=== PATIENT | male | born 1955 | race Caucasian/White ===

== ENCOUNTER 2018-05-10 18:26 | Inpatient (IN) | payer BC ==
[~2018-05-10] VITALS: Ht 152.4 cm; Wt 83.1 kg
[2018-05-10] MEDS ORDERED: LACTULOSE 20Gm/30ML SOLN PO ONE (20:30)
[2018-05-10 21:20] LABS: Basophils # (auto) 0 uL; Basophils % (auto) 0.3 % (0.0-2.0); Eosinophils # (auto) 0 uL; Eosinophils % (auto) 0.6 % (0.0-7.0); Hematocrit 32.4 % (41.0-53.0); Hemoglobin 10.8 g/dL (13.5-17.5); Lymphocytes # (auto) 0.8 uL; Lymphocytes % (auto) 11.5 % (10.0-50.0); Mean Corpuscular Hemoglobin 35.1 pg (28.0-32.0); Mean Corpuscular Hgb Conc. 33.4 g/dL (32.0-36.0); Mean Corpuscular Volume 105.3 fL (80.0-100.0); Monocytes # (auto) 0.7 uL; Monocytes % (auto) 8.9 % (0.0-12.0); Neutrophils # (auto) 5.7 uL; Neutrophils % (auto) 78.7 % (37.0-80.0); Platelet Count (auto) 173 10^3/uL (140-450); Red Blood Cells 3.08 10^6/uL (4.5-5.90); Red Cell Distribution Width 18.9 % (11.8-14.3); White Blood Cell 7.3 10^3/uL (4.4-10.8)
[2018-05-10 21:36] LABS: INR 1.77 (0.9-1.15); Partial Thromboplastin Time 29.3 sec (23.78-33.04); Prothrombin Time 18.3 sec (9.27-12.13)
[2018-05-10 21:43] LABS: Alanine Aminotransferase 55 U/L (16-61); Albumin 2.1 g/dL (3.4-5.0); Anion Gap 10 (5-15); Aspartate Aminotransferase 272 U/L (15-37); BUN/Creatinine Ratio 22.8; Blood Alcohol < 3.0 mg/dL (0-5); Blood Urea Nitrogen 28 mg/dL (7-18); Calcium 7.6 mg/dL (8.5-10.1); Carbon Dioxide 25 mmol/L (21-32); Chloride 105 mmol/L (98-107); GFR African American 76 mL/min; GFR Non-African American 63 mL/min; Glucose 158 mg/dL (74-106); Magnesium 1.8 mg/dL (1.6-2.6); Potassium 4.5 mmol/L (3.5-5.1); Sodium 140 mmol/L (136-145)
[2018-05-10 21:45] LABS: Amylase 22 U/L (25-115); Lipase 37 U/L (73-393)
[2018-05-10 21:49] LABS: Alkaline Phosphatase 223 U/L (45-117); Bilirubin, Total 8.5 mg/dL (0.2-1.0); Total Protein 6.2 g/dL (6.4-8.2)
[2018-05-10 21:52] LABS: Lactic Acid w/Reflex 2.4 mmol/L (0.4-2.0)
[2018-05-10 22:54] LABS: Urine Bacteria NONE SEEN /hpf (None Seen); Urine Blood Negative /uL (Negative); Urine Mucus FEW (None Seen); Urine Specific Gravity 1.011 (1.001-1.035); Urine WBC 4 /hpf (0 - 3)
[2018-05-10 23:06] LABS: Alcohol, Urine < 3.0 mg/dL (0-5); Amphetamine Screen, Urine NEGATIVE (NEGATIVE); Barbiturate Scree,Urine NEGATIVE (NEGATIVE); Benzodiazephine Screen, Urine NEGATIVE (NEGATIVE); Cannabinoid Screen, Urine NEGATIVE (NEGATIVE); Cocaine Screen, Urine NEGATIVE (NEGATIVE); Opiate Scree,Urine NEGATIVE (NEGATIVE); Phencyclidine Screen, Urine NEGATIVE (NEGATIVE)
[2018-05-10] MEDS: ACCU-CHEK COMFORT CURVE STRIP VI SCH (23:30)
[2018-05-10] MEDS ORDERED: OCTREOTIDE ACETATE 100 MCG in SODIUM CHL 0.9% 50 ML IV ONE (23:30)
[2018-05-10] MEDS ORDERED: DEXTROSE (50%) 50ML SYRG IV PRN (23:45)
[2018-05-10] MEDS ORDERED: LORazepam 2MG/ML-1ML VIAL IV PRN (23:45)
[2018-05-11] VITALS (23 sets, daily range): BP systolic 80–107; BP diastolic 42–63
[2018-05-11] MEDS ORDERED: FUROSEMIDE 40 MG/4 ML VIAL IV ONE
[2018-05-11] MEDS ORDERED: PANTOPRAZOLE 40 MG/10 ML VIAL IV ONE
[2018-05-11] MEDS: OCTREOTIDE ACETATE 500 MCG in SODIUM CHL 0.9% 99 ML IV SCH ×3 (02:38→18:01)
[2018-05-11] MEDS ORDERED: OCTREOTIDE ACETATE 100 MCG/ML VL ONE (02:45)
[2018-05-11] MEDS ORDERED: OCTREOTIDE ACETATE 500 MCG/ML VL ONE (02:45)
[2018-05-11] MEDS ORDERED: OMEP20TA PO (04:19)
[2018-05-11] MEDS ORDERED: PROP60CA34 PO (04:19)
[2018-05-11] MEDS ORDERED: POTA10TA79 PO (04:19)
[2018-05-11] MEDS ORDERED: GLIP-115 PO (04:19)
[2018-05-11 05:24] LABS: Eosinophils # (auto) 0 uL; Eosinophils % (auto) 0.2 % (0.0-7.0); Monocytes # (auto) 0.8 uL; Monocytes % (auto) 7.9 % (0.0-12.0); Neutrophils # (auto) 8.1 uL
[2018-05-11 05:28] LABS: Basophils # (auto) 0 uL; Basophils % (auto) 0.2 % (0.0-2.0); Hematocrit 27.9 % (41.0-53.0); Hemoglobin 9.9 g/dL (13.5-17.5); Mean Corpuscular Hemoglobin 36.4 pg (28.0-32.0); Mean Corpuscular Hgb Conc. 35.4 g/dL (32.0-36.0); Mean Corpuscular Volume 102.7 fL (80.0-100.0); Neutrophils % (auto) 81.7 % (37.0-80.0); Platelet Count (auto) 166 10^3/uL (140-450); Red Blood Cells 2.72 10^6/uL (4.5-5.90); Red Cell Distribution Width 17.9 % (11.8-14.3); White Blood Cell 9.9 10^3/uL (4.4-10.8)
[2018-05-11 05:44] LABS: Potassium 4.2 mmol/L (3.5-5.1)
[2018-05-11 05:53] LABS: Albumin 2.1 g/dL (3.4-5.0); BUN/Creatinine Ratio 25.9; Bilirubin, Total 8.5 mg/dL (0.2-1.0); Calcium 7.9 mg/dL (8.5-10.1); Total Protein 5.8 g/dL (6.4-8.2)
[2018-05-11] MEDS: InsuLIN REG 1unit/0.01ml Soln (100units/ml) SC SCH ×4 (05:59→17:52)
[2018-05-11] MEDS: ACCU-CHEK COMFORT CURVE STRIP VI SCH ×3 (05:59→17:52)
[2018-05-11] MEDS ORDERED: SODIUM CHLORIDE 0.9% 1,000 ML IV SCH (13:00)
[2018-05-11] MEDS ORDERED: PANTOPRAZOLE 80 MG in SODIUM CHL 0.9% 60 ML IV SCH (13:00)
[2018-05-11] MEDS ORDERED: SODIUM CHLORIDE 0.9% 500 ML IV ONE (13:00)
[2018-05-11] MEDS: ALBUMIN 25% 50 ML IV SCH ×2 (13:19→22:58)
[2018-05-11 13:26] LABS: Hematocrit 27.4 % (41.0-53.0)
[2018-05-11 13:28] LABS: Hemoglobin 9.2 g/dL (13.5-17.5)
[2018-05-11] MEDS: D5W/SOD CHLO 0.9% 1,000 ML IV SCH (16:00)
[2018-05-11] MEDS: LACTULOSE 20Gm/30ML SOLN NG SCH (18:01)
[2018-05-11] MEDS: PANTOPRAZOLE 40 MG/10 ML VIAL IV SCH (22:00)
[2018-05-11] MEDS ORDERED: FUROSEMIDE 20 MG/2 ML VIAL IV ONE (22:45)
[2018-05-12] VITALS (12 sets, daily range): BP systolic 93–113; BP diastolic 50–67
[2018-05-12] MEDS: LACTULOSE 20Gm/30ML SOLN NG SCH ×5 (00:34→23:32)
[2018-05-12] MEDS: InsuLIN REG 1unit/0.01ml Soln (100units/ml) SC SCH ×5 (00:38→23:31)
[2018-05-12] MEDS: OCTREOTIDE ACETATE 500 MCG in SODIUM CHL 0.9% 99 ML IV SCH ×4 (05:00→20:22)
[2018-05-12 05:13] LABS: Basophils # (auto) 0 uL; Eosinophils # (auto) 0 uL; Lymphocytes # (auto) 1.1 uL; Mean Corpuscular Volume 107.5 fL (80.0-100.0); Monocytes # (auto) 0.6 uL
[2018-05-12 05:17] LABS: Basophils % (auto) 0.2 % (0.0-2.0); Hemoglobin 7.7 g/dL (13.5-17.5); Lymphocytes % (auto) 9.4 % (10.0-50.0); Mean Corpuscular Hemoglobin 35.8 pg (28.0-32.0); Mean Corpuscular Hgb Conc. 33.3 g/dL (32.0-36.0); Monocytes % (auto) 5.4 % (0.0-12.0); Neutrophils # (auto) 9.6 uL; Nucleated Red Blood Cells % 0.1 %; Platelet Count (auto) 141 10^3/uL (140-450); Red Blood Cells 2.14 10^6/uL (4.5-5.90); White Blood Cell 11.3 10^3/uL (4.4-10.8)
[2018-05-12 05:25] LABS: INR 2.59 (0.9-1.15); Partial Thromboplastin Time 31.4 sec (23.78-33.04); Prothrombin Time 26.3 sec (9.27-12.13)
[2018-05-12] MEDS: ALBUMIN 25% 50 ML IV SCH (05:28)
[2018-05-12 05:29] LABS: Red Cell Distribution Width 20.2 % (11.8-14.3)
[2018-05-12 05:34] LABS: Potassium 4.6 mmol/L (3.5-5.1)
[2018-05-12 05:39] LABS: BUN/Creatinine Ratio 19.3; Calcium 7.9 mg/dL (8.5-10.1)
[2018-05-12] MEDS: ACCU-CHEK COMFORT CURVE STRIP VI SCH ×5 (06:23→23:30)
[2018-05-12] MEDS ORDERED: SODIUM CHLORIDE 0.9% 1,000 ML IV ONE (06:30)
[2018-05-12] MEDS: PANTOPRAZOLE 40 MG/10 ML VIAL IV SCH ×2 (09:37→21:58)
[2018-05-12] MEDS: D5W/SOD CHLO 0.9% 1,000 ML IV SCH ×2 (15:00)
[2018-05-12] MEDS ORDERED: PHYTONADIONE (VIT K)10 MG/ML 1ML VIAL SUBCUT ONE (15:15)
[2018-05-13 00:38] VITALS: BP 102/59
[2018-05-13] MEDS: D5W/SOD CHLO 0.9% 1,000 ML IV SCH ×3 (02:15→21:50)
[2018-05-13 04:11] VITALS: BP 110/56
[2018-05-13] MEDS: LACTULOSE 20Gm/30ML SOLN NG SCH ×3 (05:35→21:38)
[2018-05-13] MEDS: OCTREOTIDE ACETATE 500 MCG in SODIUM CHL 0.9% 99 ML IV SCH (05:36)
[2018-05-13] MEDS: ACCU-CHEK COMFORT CURVE STRIP VI SCH ×3 (05:36→18:09)
[2018-05-13] MEDS: InsuLIN REG 1unit/0.01ml Soln (100units/ml) SC SCH ×3 (06:24→18:10)
[2018-05-13 06:48] LABS: Eosinophils # (auto) 0 uL
[2018-05-13 06:50] LABS: Basophils # (auto) 0 uL; Basophils % (auto) 0.3 % (0.0-2.0); Hematocrit 30.7 % (41.0-53.0); Hemoglobin 10.1 g/dL (13.5-17.5); Lymphocytes % (auto) 8.7 % (10.0-50.0); Mean Corpuscular Hemoglobin 34.3 pg (28.0-32.0); Mean Corpuscular Hgb Conc. 32.9 g/dL (32.0-36.0); Mean Corpuscular Volume 104.2 fL (80.0-100.0); Monocytes # (auto) 0.4 uL; Monocytes % (auto) 3.9 % (0.0-12.0); Neutrophils # (auto) 9.8 uL; Neutrophils % (auto) 87.1 % (37.0-80.0); Nucleated Red Blood Cells % 0.3 %; Platelet Count (auto) 173 10^3/uL (140-450); Red Blood Cells 2.95 10^6/uL (4.5-5.90); White Blood Cell 11.3 10^3/uL (4.4-10.8)
[2018-05-13 06:55] LABS: Red Cell Distribution Width 22.6 % (11.8-14.3)
[2018-05-13 07:01] LABS: Albumin 2.3 g/dL (3.4-5.0); Potassium 3.8 mmol/L (3.5-5.1)
[2018-05-13 07:04] LABS: BUN/Creatinine Ratio 24.2; Total Protein 5.7 g/dL (6.4-8.2)
[2018-05-13 08:00] VITALS: BP 106/59
[2018-05-13] MEDS: PANTOPRAZOLE 40 MG/10 ML VIAL IV SCH ×2 (09:33→21:38)
[2018-05-13] MEDS: PHYTONADIONE (VIT K)10 MG/ML 1ML VIAL SUBCUT SCH (09:34)
[2018-05-13] MEDS ORDERED: LACT10SO3 PO (11:38)
[2018-05-13 11:55] VITALS: BP 103/58
[2018-05-13 12:13] LABS: Basophils # (auto) 0 uL; Eosinophils # (auto) 0 uL
[2018-05-13 12:16] LABS: Basophils % (auto) 0.5 % (0.0-2.0); Hematocrit 29.4 % (41.0-53.0); Hemoglobin 9.9 g/dL (13.5-17.5); Lymphocytes # (auto) 0.9 uL; Mean Corpuscular Hemoglobin 35.5 pg (28.0-32.0); Mean Corpuscular Hgb Conc. 33.7 g/dL (32.0-36.0); Mean Corpuscular Volume 105.3 fL (80.0-100.0); Monocytes # (auto) 0.4 uL; Neutrophils # (auto) 9.4 uL; Neutrophils % (auto) 87.5 % (37.0-80.0); Nucleated Red Blood Cells % 0.5 %; Platelet Count (auto) 151 10^3/uL (140-450); White Blood Cell 10.7 10^3/uL (4.4-10.8)
[2018-05-13 12:17] LABS: Red Cell Distribution Width 22.1 % (11.8-14.3)
[2018-05-13 15:51] VITALS: BP 106/55
[2018-05-13 19:48] VITALS: BP 108/59
[2018-05-14] MEDS: ACCU-CHEK COMFORT CURVE STRIP VI SCH ×3 (00:25→11:58)
[2018-05-14 00:30] VITALS: BP 111/63
[2018-05-14] MEDS: InsuLIN REG 1unit/0.01ml Soln (100units/ml) SC SCH ×3 (00:34→11:58)
[2018-05-14 02:38] VITALS: BP 111/63
[2018-05-14 04:23] VITALS: BP 113/59
[2018-05-14 08:15] VITALS: BP 109/59
[2018-05-14] MEDS: D5W/SOD CHLO 0.9% 1,000 ML IV SCH (08:15)
[2018-05-14] MEDS: LACTULOSE 20Gm/30ML SOLN NG SCH (10:00)
[2018-05-14] MEDS: PANTOPRAZOLE 40 MG/10 ML VIAL IV SCH (10:17)
[2018-05-14] MEDS: PHYTONADIONE (VIT K)10 MG/ML 1ML VIAL SUBCUT SCH (10:18)
[2018-05-14 12:00] VITALS: BP 109/59
[2018-05-14 12:18] VITALS: BP 101/54
== END 2018-05-14 14:30 | disposition hospice, home (50) | DRG 432 ==
LOC: ER 18:26 → EDBD 18:26 → TELE 18:27 → TELE-CENTR 05-11 00:37 → DOU IN ICU 05-11 15:52
PROVIDERS: ADMIT Nurse Practitioner Family; ATTEND Hospitalist
PROC: 30233K1 Transfusion of Nonautologous Frozen Plasma into Peripheral Vein, Percutaneous Approach (ICD-10-PCS; principal; 2018-05-11)
PROC: 30233L1 Transfusion of Nonautologous Fresh Plasma into Peripheral Vein, Percutaneous Approach (ICD-10-PCS; 2018-05-11)
PROC: 30233N1 Transfusion of Nonautologous Red Blood Cells into Peripheral Vein, Percutaneous Approach (ICD-10-PCS; 2018-05-11)
DX: K70.30 Alcoholic cirrhosis of liver without ascites (principal); K72.91 Hepatic failure, unspecified with coma; G93.41 Metabolic encephalopathy; I85.11 Secondary esophageal varices with bleeding; K76.7 Hepatorenal syndrome; C22.0 Liver cell carcinoma; E72.4 Disorders of ornithine metabolism; E87.2 Acidosis; D68.9 Coagulation defect, unspecified; E88.09 Other disorders of plasma-protein metabolism, not elsewhere classified
CPT/HCPCS: 36415; 70450; 71045; 74176; 76700; 80048; 80053; 80307; 80320; 81001; 82105; 82140; 82150; 82270; 82962; 83036; 83605; 83690; 83735; 83880; 84484; 85014; 85018; 85025; 85610; 85730; 86850; 86900; 86901; 86920; 87040; 87081; 87086; 94761; 96361; 96365; 96375; C9113; G0378; J1815; J3430; J7042